=== PATIENT | male | born 1970 | race Caucasian/White ===

== ENCOUNTER 2024-10-27 09:07 | Day surgery (SDC) | payer OTHER, SELFPAY ==
--- NOTE | 2024-10-27 11:26 | ITS.CL.CARDI ---
Security Sergeant - Cardioversion
Cardioversion
Procedure Report:
Date of Procedure: October 27 2024
Procedure: Cardioversion
Indication: Symptomatic atrial fibrillation
Performing Physician: Toribio Hernandez DO, FACC
Technique: The patient was brought to the holding area. Signed informed consent was obtained. A time out was called and performed. The patient was anesthetized by the anesthesia service. Anticoagulation status was reviewed and appropriate. R2 pads
were placed anteriorly and posteriorly. A 200 J synchronized biphasic shock restored normal sinus rhythm without significant bradycardia. There were no complications.
Conclusion: Uncomplicated cardioversion from atrial fibrillation to sinus rhythm.
Recommendation: Routine post cardioversion care. Continue fci anticoagulation.
== END 2024-10-27 11:30 | disposition home or self-care (01) ==
LOC: CATH 09:07
PROVIDERS: ATTENDING PHYSICIAN Nuclear Medicine Nuclear Cardiology; FAMILY PHYSICIAN Family Medicine; OTHER PHYSICIAN Internal Medicine Cardiovascular Disease
DX: I48.91 Unspecified atrial fibrillation (principal); Z79.01 Long term (current) use of anticoagulants
CPT/HCPCS: 92960; 93005

== ENCOUNTER → 2024-11-11 08:14 | Outpatient (REF) | payer OTHER, SELFPAY | LOC: RCS 08:14 | PROVIDERS: ATTENDING PHYSICIAN Internal Medicine Cardiovascular Disease; FAMILY PHYSICIAN Family Medicine | DX: I42.9 Cardiomyopathy, unspecified (principal) | CPT/HCPCS: 93306; 93356 ==

== ENCOUNTER 2025-03-29 05:53 | Day surgery (SDC) | payer OTHER, SELFPAY ==
[2025-03-16 09:16] VITALS: BMI 28.1
--- NOTE | 2025-03-16 09:24 | HPS.HSE ---
Family Physician
-
Family Physician: Rebeka Olea
Chief Complaint
-
Persistent atrial fibrillation.
History of Present Illness
The patient is a 54 year old male presenting today for persistent atrial fibrillation. The patient was initially diagnosed with atrial fibrillation in August 2020. He previously underwent pulmonary vein isolation in September 2020, October
2022, and January 2023. He has also undergone 11 total cardioversions since September of 2020. His last cardioversion occurred in October of this year. His cardioversion was initially successful; however, by late December 2024, his atrial fibrillation had
returned. This was confirmed by his Apple Watch and [employer] mobile. He does report mild dyspnea on exertion, rare palpitations, and fatigue since his arrhythmia returned. He is currently on pharmacological therapy with Carvedilol. He does report
compliance with Eliquis for oral anticoagulation. He is interested in pursuing repeat pulmonary vein isolation for more definitive arrhythmia management. He denies any current complaints today such as chest pain, shortness of breath at rest, nausea,
vomiting, diarrhea, dizziness, cough, sore throat, or fever.
Medical History
Past Medical History
Past Medical History: Reports Other
Additional Past Medical History:
1. Persistent atrial fibrillation, status post pulmonary vein isolation x3 and cardioversion x10; pharmacological therapy with Carvedilol, oral anticoagulation with Eliquis.
2. Hyperlipidemia.
3. Nonsustained ventricular tachycardia.
4. Congestive heart failure, preserved ejection fraction.
5. Familial, dilated nonischemic cardiomyopathy.
6. Mild mitral regurgitation.
7. Chronic kidney disease stage 3.
8. Nephrolithiasis, non-obstructive.
9. Hypothyroidism, on previous Synthroid.
10. Impaired fasting glucose.
Past Surgical History: Reports Other
Additional Past Surgical History:
1. Pulmonary vein isolation x3.
2. Cardioversion x11.
3. Transesophageal echocardiogram.
4. Cardiac catheterization x2.
5. Laser eye surgery.
6. [place] teeth extraction.
7. Dental extraction.
Social History
Tobacco: Non-smoker
Alcohol: None
Personal:
Living: Other (The patient lives in a two-story home with his and 1 of 3 sons.)
Family History
Family History: Not pertinent
Allergies / Home Medications
Allergy/Medication List:
HOME MEDICATIONS:
1. Carvedilol 6.25 mg p.o. twice a day.
2. Eliquis 5 mg p.o. twice a day.
3. Lisinopril 2.5 mg p.o. daily.
4. Rosuvastatin 20 mg p.o. every evening.
ALLERGIES: Xarelto. Aspirin.
Review of Systems
-
A 12 point ROS was completed and negative except as noted: Yes
Physical Exam
Vital Signs
Blood pressure 116/76. Heart rate 92. Respirations 18. Pulse ox 98% on room air.
Height 5 feet, 11 inches. Weight 91.4 kg. BMI 28.1.
Physical Exam
General: Well Developed, Well Nourished and No Apparent Distress
HEENT: NormoCephalic, Moist mucous membranes, Atraumatic and PERRLA
Respiratory: Clear
Cardiac: Irregular Rhythm
GI: Soft, Non Tender and Non Distended
Musculoskeletal: No Edema and Normal Gait & Station
Skin: Warm and Dry
Neuro: AO x 3 and Nonfocal/grossly intact
Laboratory Results
-
DIAGNOSTIC STUDIES as of 03/16/2025: White blood cell count 5.3. Hemoglobin 15.1. Platelet count 197,000. PT 14.7. INR 1.09. Sodium 137. Potassium 4.8. BUN 25. Creatinine 1.1. Glucose 99. Calcium 9.4. Magnesium 2.0. AST 23. ALT 27. Albumin 4.7. Type
and screen O positive.
EKG 03/16/2025: Atrial fibrillation.
Echocardiogram 11/11/2024: Normal left ventricular size, wall thickness, and systolic function. No regional wall motion abnormalities are seen. LV ejection fraction is 55% by Sousa's method of discs, visually 50-55%. Normal diastolic function. GLS
endo peak avg = -18.0 %. Normal right ventricular size and function. Normal atria. Mild mitral regurgitation. When compared to prior study on 05/08/2023, there is no significant change.
Impression/Plan
-
IMPRESSION/PLAN:
1. Persistent atrial fibrillation: The patient is in need of pulmonary vein isolation with Dr. Blaine Miller on 03/29/2025. The benefits and risks of the procedure have been explained to the patient. The patient understands these risks and
wishes to proceed. He will not be required to undergo a pre-procedural transesophageal echocardiogram as he has been compliant with his home oral anticoagulation. He is aware to continue his Eliquis uninterrupted prior to his procedure. He will take
no medications the morning of his ablation.
[2025-03-16 09:50] LABS: Hematocrit 41.9 % (39.0-52.0); Hemoglobin 15.1 g/dL (13.0-18.0); Mean Corp Hgb Conc. 36.0 g/dL (33.0-37.0); Mean Corpuscular Volume 87.7 fL (80.0-94.0); Nucleated Red Blood Cells % 0 % (-); Platelet Count 197 10^3/uL (130-400); Red Cell Dist. Width 12.3 % (11.5-14.5)
[2025-03-16 09:57] LABS: INR 1.09; PT 14.7 Sec (11.4-14.6)
[2025-03-16 11:21] LABS: ALT (SGPT) 27 U/L (0-50); AST (SGOT) 23 U/L (17-59); Albumin 4.7 g/dl (3.5-5.0); Alkaline Phosphatase 56 U/L (38-126); Blood Urea Nitrogen 25 mg/dl (9-20); Calcium 9.4 mg/dl (8.4-10.2); Carbon Dioxide 23 mmol/L (22-30); Chloride 106 mmol/L (98-107); Estimated Creatinine Clearance 82 ml/min; Glucose 99 mg/dl (70-99); Magnesium 2.0 mg/dl (1.6-2.3); Potassium 4.8 mmol/L (3.5-5.1); Sodium 137 mmol/L (135-145); Total Protein 7.6 g/dl (6.3-8.2); eGFR > 60.00
[2025-03-29] VITALS (14 sets, daily range): BP systolic 89–124; BP diastolic 64–95
[2025-03-29] MEDS: TYLENOL 1000 MG PO (07:14)
--- NOTE | 2025-03-29 08:16 | ITS.CL.ABL ---
Inspector And Clerk - Ablation
Ablation
Procedure Report:
ELECTROPHYSIOLOGIC STUDY AND POSSIBLE ABLATION
DATE: March 29, 2025
Primary Care Provider: Dr. Rebeka Olea
Primary cash crop farmer: Dr Sierra Ricketts
INDICATION:
Symptomatic Atrial Fibrillation.
Persistent.
HISTORY: See H and P.�
Symptomatic persistent AF, poorly controlled with attempted medical therapy.
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
directed medical therapy.� At presentation August 2020, he required inotrope support for heart failure with reduced ejection fraction EF 10 to 20%. His EF improved to 40% on cardiac MRI�
He underwent ablation for atrial fibrillation in August 2020 targeting pulmonary venous isolation.� He was maintained on amiodarone for 6 months during which time he maintained sinus rhythm and ejection fraction improved.� Thereafter amiodarone
was stopped and subsequently he recurred with atrial fibrillation which has become persistent.� Repeat mapping and ablation February 02, 2023 with radiofrequency catheter ablation which targeted reisolation of the pulmonary veins as well as attempted
electrical isolation of the posterior wall of the left atrium.
Echocardiogram 11/2024 in sinus rhythm following cardioversion on October 27, 2024 showed preserved LV systolic function and normal LV chamber size with no significant valve pathology.���
He has subsequently recurred with symptomatic atrial fibrillation and presents today for repeat mapping and ablation with consideration for use of pulsed electric field energy ablation.
He has been maintained on uninterrupted Eliquis 5 mg twice daily.
HAS-BLED: 0
CHADSVASc: 1
CHF, NYHA Class 2, HFrEF (improved)
PRESENTING RHYTHM: AF
HISTORY: See H and P.
Symptomatic AF, poorly controlled with attempted medical therapy.
ANTICOAGULATION: Eliquis 5 mg twice daily
'TIME-OUT': called and confirmed.
SEDATION/ANESTHESIA: provided via the anesthesia department using general anesthesia.
PROCEDURE:
Ultrasound Guidance with real-time visualization of needle insertion and vessel patency performed by me for femoral venous Vascular Access.
Under real-time US guidance, the needle was advanced with negative pressure into the vein. The needle was seen entering the vessel lumen with a good return of dark red flow, the syringe was removed, non-pulsatile, dark red blood low was noted and
the wire was passed without difficulty, then the needle was removed. US confirmed the wire was in the vein, not going into an artery,
Images were taken and saved for the patient's permanent record. Imaging findings typical femoral venous anatomy. Direct visualization of needle puncture into the femoral vein was observed and recorded.
A decapolar CS catheter was placed within the CS for mapping and pacing.
The intracardiac ultrasound catheter was positioned in the RA for continuous intracardiac ultrasound imaging.
Heparin bolus and infusion to target ACT at 300 -350 seconds was administered. Transseptal puncture was performed. This entailed advancing a sheath with dilator into the superior vena cava and withdrawing both (monitoring intracardiac ultrasound,
fluoroscopy and tip pressure) with the tip oriented toward the atrial septum. The fossa ovalis was engaged (indicated by sudden displacement of the sheath tip as well as tenting of the fossa seen on intracardiac ultrasound).
Transseptal puncture was performed. Left atrial catheter position was confirmed by echocardiographic imaging, pressure monitoring (LA mean pressure 12mm Hg) and fluoroscopy. The sheath was advanced over the dilator and positioned in the left
atrium.
The [employer] multipolar mapping/ablation Sphere-9 catheter was positioned through the transseptal sheath for high density mapping.
Geometry and voltage mapping was performed using the [employer] mapping system for three-dimensional electroanatomical mapping.
Catheter positioning was guided and confirmed using both I.C.E. and fluoroscopy.
Cardioversion resulted in sinus rhythm.
High density electroanatomical three-dimensional mapping demonstrated PVs: LSPV, LIPV, RSPV, RIPV.
Mapping demonstrates electrical reconnection at the superior lateral quadrant of the left superior pulmonary vein and at the anterior inferior quadrant of the right superior pulmonary vein towards the right pulmonary vein ju. There is also
suggestion of electrical reconnection at the inferior quadrant anteriorly of the right inferior pulmonary vein.
Ablation strategy included PVI as well as mapping for extra PV contributors to atrial fibrillation which would also be targeted if present.
After accomplishing pulmonary venous isolation, mapping identified additional areas likely to be extra PV contributors to atrial fibrillation. These areas demonstrated patchy low voltage as well as complex fractionated electrograms. These areas can
be sites for the formation of rotors which can drive and maintain atrial fibrillation. These areas are known to be significant contributors to initiation and perpetuation of atrial fibrillation.
Additional energy applications/additional ablation sets targeted extra PV contributors to atrial fibrillation.
In 2022 patient underwent attempted radiofrequency ablation for isolation of the posterior wall. At present there is incomplete posterior wall isolation.
Targets for additional PFA ablation included:
LA posterior wall targeted with pulsed electric field energy isolating the posterior wall of the left atrium
After ablation of the posterior wall, additional targets were addressed:
LA inferior floor line
These areas were ablated using pulsed electric field energy eliminating the extra PV contributors to atrial fibrillation.
Post ablation mapping finds entrance and exit block at each of the pulmonary veins (LSPV, LIPV, RSPV, RIPV), the LA posterior wall and at the additional line at the Inferior/floor of the LA rendering the sites no longer able to contribute to atrial
fibrillation.
Programmed electrostimulation including burst atrial pacing as well the delivery of decremental extrastimuli down to atrial effective refractory period and no sustained arrhythmias could be induced.
I.C.E. :
Pre-Ablation Post-Ablation
LVEF: 45-50 % 45-50 %
WMA: none none
Pericardial effusion: Trace posterior trace posterior
LA Pressure 12 14
Fluoroscopic exposure : 3.4 minutes
COMPLICATIONS:
none
SUMMARY:
- Mapping and ablation to isolate the PVs resulting in electrical isolation of the pulmonary veins
- Additional AF ablation sets X 2 after PVI (LA posterior wall, Inf/floor of the post John) resulting in elimination of the targeted extra PV contributors to atrial fibrillation (Post wall, Inf LA floor)
- 3-D Electroanatomical Mapping
- Intracardiac Ultrasound
- Ultrasound guidance for vascular access
Post ablation, I discussed today's findings and results with the patient's , Odalis
RECOMMENDATIONS:
- Observe in monitored bed.
- Maintain oral anticoagulation.
- Office visit with SVETLANA Santos on June 30, 2025
- Continue cardiovascular care with Dr Sierra Ricketts
Copy to:
Dr. Rebeka Olea
Dr Sierra Ricketts
[2025-03-29 08:57] LABS: ACT-LR - POC 298 Seconds (116-155)
[2025-03-29 09:18] LABS: ACT-LR - POC 347 Seconds (116-155)
--- NOTE | 2025-03-29 14:04 | W.PN.UPDATE ---
Update Note
Progress Note Update
Pt seen post PFA. Right groin site without ht/bleeding, non tender. OOB ambulating. Post EKG NSR 78, no acute changes. Resume eliquis tonight. Followup at [facility] as scheduled. Home today if groin site/tele remain stable.
== END 2025-03-29 14:17 | disposition home or self-care (01) ==
LOC: CATH 05:53
PROVIDERS: ATTENDING PHYSICIAN Internal Medicine Cardiovascular Disease; FAMILY PHYSICIAN Family Medicine; OTHER PHYSICIAN Internal Medicine Cardiovascular Disease
DX: I48.19 Other persistent atrial fibrillation (principal); E78.5 Hyperlipidemia, unspecified; I42.0 Dilated cardiomyopathy; N18.30 Chronic kidney disease, stage 3 unspecified; Z87.442 Personal history of urinary calculi; E03.9 Hypothyroidism, unspecified; R73.01 Impaired fasting glucose; I34.0 Nonrheumatic mitral (valve) insufficiency; Z79.01 Long term (current) use of anticoagulants; I50.20 Unspecified systolic (congestive) heart failure; Z88.6 Allergy status to analgesic agent; Z79.899 Other long term (current) drug therapy
CPT/HCPCS: C1733; C1894; C1730; C1892; C1759; C1766; 36415; 80053; 83735; 85025; 85610; 86850; 86900; 86901; 93005; 93656; 93657; C1769

== ENCOUNTER 2025-05-26 09:56 | Day surgery (SDC) | payer OTHER, SELFPAY ==
[2025-05-24 13:19] VITALS: BMI 29.1
== END 2025-05-26 11:45 | disposition home or self-care (01) ==
LOC: CATH 09:56
PROVIDERS: ATTENDING PHYSICIAN Internal Medicine Cardiovascular Disease; FAMILY PHYSICIAN Family Medicine; OTHER PHYSICIAN Internal Medicine
DX: I48.19 Other persistent atrial fibrillation (principal); E78.5 Hyperlipidemia, unspecified; I42.0 Dilated cardiomyopathy; I50.42 Chronic combined systolic (congestive) and diastolic (congestive) heart failure; I34.0 Nonrheumatic mitral (valve) insufficiency; E03.9 Hypothyroidism, unspecified; R73.01 Impaired fasting glucose; Z79.899 Other long term (current) drug therapy; Z79.01 Long term (current) use of anticoagulants; Z88.6 Allergy status to analgesic agent
CPT/HCPCS: 92960; 93005